=== PATIENT | male | born 1955 | race Caucasian/White ===

== ENCOUNTER 2016-05-02 00:28 | Emergency (ER) | payer SELFPAY ==
[~2016-05-02] VITALS: Ht 175.3 cm; Wt 78.0 kg
--- NOTE | 2016-05-02 00:47 | PD ---
HPI Chief Complaint: Alcohol/Drug Intoxication Time Seen by Provider: 00:39 Travel History International Travel<30 days: No Contact w/Intl Traveler<30days: No History of Present Illness HPI Patient is a 61-year-old male presents emergency department for alcohol intoxication. Patient was at [employer], observed to be drinking heavily. Patient stood up to leave when he fell to the ground, thankfully not sustaining any trauma. Patient had staggering gait thereafter and EMS was called. Patient unable to ambulate safely and therefore brought here. Patient albeit cantankerous, denies any complaints other than being here. Patient does not want to be here. Denies any headache, nausea or vomiting. Patient had no complaints for EMS. [facility] Past Medical History Arthritis: Yes Asthma: No Cancer: No Cardiovascular Problems: No COPD: Yes Cerebrovascular Accident: Yes (4 YEARS AGO. ) Diminished Hearing: No Endocrine: No Gastrointestinal Disorders: Yes (LIVER PAIN AND STOMACH PAIN SEVERE) GERD: Yes Genitourinary: No Immune Disorder: No Musculoskeletal: Yes Neurologic: Yes Psychiatric: Yes (PTSD) Immunizations Current: Yes Seizures: No Ulcer: Yes Past Surgical History Pacemaker: No Other Surgery: No Social History Alcohol Use: Yes Tobacco Use: Yes Substance Use: Yes Allergies-Medications (Allergen,Severity, Reaction): Coded Allergies: No Known Allergies (Unverified , 05/25/14) pt stated that he is not allergic to codine and that he does not have any known allergies Reported Meds & Prescriptions Reported Meds & Active Scripts Active No Active Prescriptions or Reported Medications Review of Systems ROS Limitations: Intoxication Except as stated in HPI: all other systems reviewed are Neg Physical Exam Exam Limitations: Intoxication Narrative GENERAL: Adult male appearing older than stated age cantankerous but in no acute distress SKIN: Warm and dry. HEAD: Atraumatic. Normocephalic. EYES: Pupils equal and round. No scleral icterus. No injection or drainage. ENT: No nasal bleeding or discharge. Mucous membranes pink and moist. NECK: Supple without midline tenderness to palpation CARDIOVASCULAR: Regular rate and rhythm. No murmur appreciated. RESPIRATORY: No accessory muscle use. Clear to auscultation. Breath sounds equal bilaterally. GASTROINTESTINAL: Abdomen soft, non-tender, nondistended. Obese MUSCULOSKELETAL: No obvious deformities. No edema. NEUROLOGICAL: Awake and alert. Motor grossly within normal limits. Normal speech. MDM Medical Decision Making Medical Screen Exam Complete: Yes Emergency Medical Condition: Yes Medical Record Reviewed: Yes Differential Diagnosis 61-year-old male here for intoxication. History and exam are consistent with alcohol intoxication. Patient is atraumatic and does not warrant any laboratory workup. Narrative Course He has unsteady gait at this time, it is not safe for discharge. Patient will be given time to sober from his alcohol intoxication. When able to ambulate safely will be discharged home. Diagnosis Primary Impression: Alcohol intoxication Qualified Code: F10.120 - Alcohol intoxication, uncomplicated Referrals: [facility] for appointment Additional Instructions: Seek outpatient management for your alcohol abuse Med/Other Pt SpecificInfo: No Change to Meds Scripts No Active Prescriptions or Reported Meds Disposition: DISCHARGE HOME Condition: Stable Shanelle Law MD May 02, 2016 00:47
[2016-05-02 00:48] VITALS: BP 121/82; PULSE 72; RESP 15; O2SAT 99
[2016-05-02 03:25] VITALS: BP 133/85; PULSE 94; RESP 19; O2SAT 97
[2016-05-02 07:30] VITALS: BP 97/60; PULSE 94; RESP 18; O2SAT 98
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
== END 2016-05-02 13:09 | disposition home or self-care (01) ==
LOC: NEPE 00:28 → NEPA 13:09
DX: F10.120 Alcohol abuse with intoxication, uncomplicated (principal)
CPT/HCPCS: 99284

== ENCOUNTER 2017-02-01 00:16 | Emergency (ER) | payer OTHER ==
[~2017-02-01] VITALS: Ht 182.9 cm; Wt 90.0 kg
[2017-02-01 00:23] VITALS: BP 157/94; PULSE 104; O2SAT 95
[2017-02-01] MEDS ORDERED: DIPHTH/TETANUS/ACEL PERTUSSIS (BOOSTER) 0.5 ML VIAL/PFS IM ONE (01:15)
[2017-02-01] MEDS ORDERED: ONDANSETRON HCL 4 MG/2 ML VIAL IV PUSH ONE (01:15)
[2017-02-01] MEDS ORDERED: MORPHINE SULFATE 8 MG/ML INJ IV PUSH ONE (01:15)
[2017-02-01 01:18] VITALS: O2SAT 97
[2017-02-01] MEDS ORDERED: LIDOCAINE 1%/EPINEPHrine 1:100,000 SOLN 20 ML VIAL ONE (01:27)
[2017-02-01] MEDS ORDERED: LIDOCAINE 1%/EPINEPHrine 1:100,000 SOLN 20 ML VIAL INFIL ONE (01:30)
[2017-02-01 01:38] LABS: AUTOMATED NEUTROPHIL # 5.3 TH/MM3 (1.8-7.7); BASOPHIL # 0.2 TH/MM3 (0-0.2); BASOPHIL % 1.5 % (0.0-2.0); EOSINOPHIL # 0.3 TH/MM3 (0-0.4); EOSINOPHIL % 2.6 % (0.0-4.0); HEMATOCRIT 48.4 % (39.0-51.0); HEMOGLOBIN 16.4 GM/DL (13.0-17.0); LYMPH % 35.8 % (9.0-44.0); LYMPHOCYTE # 3.6 TH/MM3 (1.0-4.8); MEAN CELL VOLUME 97.1 FL (80.0-100.0); MEAN CORPUSCULAR HEMOGLOBIN 32.9 PG (27.0-34.0); MEAN CORPUSCULAR HGB CONC 33.8 % (32.0-36.0); MEAN PLATELET VOLUME 8.4 FL (7.0-11.0); MONO % 7.3 % (0.0-8.0); MONOCYTE # 0.7 TH/MM3 (0-0.9); NEUT % 52.8 % (16.0-70.0); PLATELET COUNT 279 TH/MM3 (150-450); RED BLOOD COUNT 4.98 MIL/MM3 (4.50-5.90); RED CELL DISTRIBUTION WIDTH 13.4 % (11.6-17.2); WHITE BLOOD COUNT 10.1 TH/MM3 (4.0-11.0)
--- NOTE | 2017-02-01 02:18 | PD ---
Physical Exam Date Seen by Provider: Feb 01, 2017 Time Seen by Provider: 01:34 Narrative Skin: Patient has a gaping 23 centimeter laceration to the left anterior tibial region. There are some superficial dirt debris. There is no obvious bony injury. No deformity. Neurovascularly intact. Data Data Last Documented VS Vital Signs Date Time Temp Pulse Resp B/P (MAP) Pulse Ox O2 Delivery O2 Flow Rate FiO2 02/01/17 01:18 97 Room Air 02/01/17 00:23 104 157/94 (115) Orders Orders Complete Blood Count With Diff (02/01/17 01:04) Iv Access Insert/Monitor (02/01/17 01:04) Ecg Monitoring (02/01/17 01:04) Oximetry (02/01/17 01:04) Morphine Inj (Morphine Inj) (02/01/17 01:15) Ondansetron Inj (Zofran Inj) (02/01/17 01:15) Wzig-Ccv-Fuvqip (Booster) Inj (Boostrix (02/01/17 01:15) Lidocai-Epi 1%-1:100,000 Inj (Xylocaine- (02/01/17 01:30) Lidocai-Epi 1%-1:100,000 Inj (Xylocaine- (02/01/17 01:27) Labs Laboratory Tests Test 02/01/17 01:15 White Blood Count 10.1 TH/MM3 Red Blood Count 4.98 MIL/MM3 Hemoglobin 16.4 GM/DL Hematocrit 48.4 % Mean Corpuscular Volume 97.1 FL Mean Corpuscular Hemoglobin 32.9 PG Mean Corpuscular Hemoglobin Concent 33.8 % Red Cell Distribution Width 13.4 % Platelet Count 279 TH/MM3 Mean Platelet Volume 8.4 FL Neutrophils (%) (Auto) 52.8 % Lymphocytes (%) (Auto) 35.8 % Monocytes (%) (Auto) 7.3 % Eosinophils (%) (Auto) 2.6 % Basophils (%) (Auto) 1.5 % Neutrophils # (Auto) 5.3 TH/MM3 Lymphocytes # (Auto) 3.6 TH/MM3 Monocytes # (Auto) 0.7 TH/MM3 Eosinophils # (Auto) 0.3 TH/MM3 Basophils # (Auto) 0.2 TH/MM3 CBC Comment DIFF FINAL Differential Comment [facility] Medical Record Reviewed: Yes Supervised Visit with MEL: Yes Differential Diagnosis MDM: High Differential diagnoses: Fracture, sprain, strain, dislocation, contusion, neurovascular injury Narrative Course Patient's laceration is closed with sutures and dionne. Patient is advised to elevate over the next several days. He is aware that if he attempts to weight- bear there is increased risk for the wound dehiscence as well as increasing pain and delayed healing. Procedures Procedure Narrative LACERATION LOCATION: Left pretibial LENGTH: 23 cm NUMBER OF STITCHES/DIONNE:36 REPAIR: The area of the laceration was prepped with Betadine and sterilely draped. The laceration was infiltrated with 1% lidocaine with epinephrine. The wound was copiously irrigated and explored without evidence of foreign body , tendon injury or neurovascular injury. The subcutaneous tissues are approximated using 3-0 Vicryl. The wound was closed using dionne. This was a intermediate 2 layer repair. A sterile dressing was applied. The patient was advised to keep the dressing clean and dry. Patient tolerated the procedure well. Scripts No Active Prescriptions or Reported Meds Daniele [place] Feb 01, 2017 02:18
[2017-02-01] MEDS ORDERED: CEPH-460 PO (02:45)
[2017-02-01] MEDS ORDERED: HYDR-3576 PO (02:45)
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
--- NOTE | 2017-02-01 03:21 | RADRPT ---
EXAM DATE/TIME: 02/01/2017 02:57 [facility] COMPARISON: No previous studies available for comparison. INDICATIONS : Patient had lacertaion to mid portion of lower leg. MEDICAL HISTORY : None. SURGICAL HISTORY : None. ENCOUNTER: Initial ACUITY: 1 day PAIN SCORE: 0/10 LOCATION: Left tib fib FINDINGS: No fracture is seen. There are skin dionne seen at the anterior lower leg. There is air in the soft tissues. No foreign bodies seen within the soft tissues. CONCLUSION: Soft tissue injury with skin dionne present. Meir Jamil MD on February 01, 2017 at 3:19 Board Certified Radiologist. This report was verified electronically.
[2017-02-01] MEDS ORDERED: ACETAMINOPHEN/HYDROcodone 325 MG/5 MG TAB PO ONE (05:45)
== END 2017-02-01 05:51 | disposition home or self-care (01) ==
LOC: NEPE 00:16
DX: S81.812A Laceration without foreign body, left lower leg, initial encounter (principal); V03.90XA Pedestrian on foot injured in collision with car, pick-up truck or van, unspecified whether traffic or nontraffic accident, initial encounter; Y93.01 Activity, walking, marching and hiking; Y92.410 Unspecified street and highway as the place of occurrence of the external cause; Z23 Encounter for immunization
CPT/HCPCS: 12036; 73590; 85025; 90471; 90715; 96374; 96375; 99284; J2270; J2405

== ENCOUNTER 2017-03-11 12:13 | Emergency (ER) | payer OTHER ==
[~2017-03-11] VITALS: Ht 182.9 cm; Wt 110.0 kg
[~2017-03-11 12:13] MED LIST: CEPH-460 PO; HYDR-3576 PO
[2017-03-11 12:57] VITALS: BP 117/68; PULSE 101; RESP 20; TEMP 98.6; O2SAT 99
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
== END 2017-03-11 13:42 | disposition left against medical advice (07) ==
LOC: NEPE 12:13
DX: M54.9 Dorsalgia, unspecified (principal); Z53.21 Procedure and treatment not carried out due to patient leaving prior to being seen by health care provider; R51 Headache; J44.9 Chronic obstructive pulmonary disease, unspecified; Z59.0 Homelessness; Z72.89 Other problems related to lifestyle; Z72.0 Tobacco use
CPT/HCPCS: 99283